=== PATIENT | male | born 1965 | race Caucasian/White ===

== ENCOUNTER 2023-01-28 15:50 | Observation (INO) | payer BC, OTHER ==
[2023-01-28 16:08] VITALS: BMI 34.7
[2023-01-28 16:33] LABS: HEMATOCRIT 53.3 % (35.4-49); HEMOGLOBIN 17.8 G/dL (11.7-16.9); MCH 30.4 pg (25.7-33.7); MCHC 33.3 g/dl (32.0-35.9); MEAN CELL VOLUME 91.2 fl (80-96); MEAN PLT VOLUME 8.4 fl (7.5-11.1); PLATELET COUNT 274.6 10^3/uL (134-434); RBC 5.84 10^6/uL (4.00-5.60); WHITE BLOOD COUNT 8.6 10^3/uL (4.0-10.8)
[2023-01-28 16:44] LABS: ALBUMIN 4.8 g/dl (3.4-5.0); CALCIUM 9.9 mg/dl (8.5-10.1); CREATININE 0.8 mg/dl (0.6-1.3); TOT PROT 7.4 g/dl (6.4-8.2)
[2023-01-28 16:44] LABS: PLATELET ESTIMATE ADEQUATE
[2023-01-28] MEDS ORDERED: LACTATED RINGERS SOLUTION 1,000 ML/1,000 ML INFUS.BAG IV STA ×2 (17:17→18:52)
[2023-01-28] MEDS ORDERED: ACETAMINOPHEN 325 MG TABLET (FP) PO ONE (17:36)
[2023-01-28] MEDS ORDERED: ACETAMINOPHEN 325 MG TABLET (FP) ONE (17:55)
[2023-01-28 22:30] LABS: INR 1.34 (0.83-1.09); PROTHROMBIN TIME (PATIENT) 15.5 SEC (9.7-13.0)
[2023-01-28] MEDS ORDERED: SODIUM CHLORIDE 1,000 ML IV SCH (22:30)
[2023-01-28 22:41] LABS: MAGNESIUM 1.9 mg/dL (1.8-2.4); PHOSPHOROUS 2.7 (2.5-4.9)
[2023-01-28] MEDS ORDERED: ASPIRIN 81 MG CHEWABLE TABLETS PO ONE (23:07)
[2023-01-28] MEDS ORDERED: ASPIRIN 325 MG TABLET ONE (23:07)
[2023-01-28] MEDS ORDERED: dilTIAZem HCL 30 MG TABLET PO ONE (23:20)
[2023-01-28] MEDS ORDERED: dilTIAZem HCL 30 MG TABLET ONE (23:21)
[2023-01-29] MEDS ORDERED: ACETAMINOPHEN 1000 MG/100 ML BAG IVPB PRN
[2023-01-29] MEDS ORDERED: guaiFENesin/D-METHORPHAN HB 10 ML UNIT-DOSE CUPS PO PRN (07:11)
[2023-01-29 08:53] LABS: CALCIUM 8.9 mg/dl (8.5-10.1); POTASSIUM 4.4 mmol/L (3.5-5.1)
[2023-01-29 09:00] VITALS: BP 112/65; PULSE 76; RESP 19; TEMP 98.4
[2023-01-29 10:08] LABS: BASO % 0.4 % (0-2.0); EOS % 2.6 % (0-4.5); HEMATOCRIT 45.9 % (35.4-49); HEMOGLOBIN 15.3 GM/dL (11.7-16.9); LYMPH % 19.1 % (8-40); MCH 30.4 pg (25.7-33.7); MCHC 33.4 g/dl (32.0-35.9); MEAN CELL VOLUME 90.8 fl (80-96); MEAN PLT VOLUME 8.5 fl (7.5-11.1); MONO % 9.4 % (3.8-10.2); NEUT % 68.5 % (42.8-82.8); PLATELET COUNT 290 10^3/uL (134-434); RBC 5.05 M/mm3 (4.00-5.60); RDW 13.8 % (11.9-15.9); WHITE BLOOD COUNT 7.9 K/mm3 (4.0-10.0)
[2023-01-30] MEDS ORDERED: ACETAMINOPHEN 325 MG TABLET (FP) PO PRN
== END 2023-01-29 12:44 | disposition home or self-care (01) ==
LOC: FER 15:50 → FM/S 21:45 → UNDOADMOB 21:53 → FM/S 21:53
PROVIDERS: ADMIT Internal Medicine; ATTEND Internal Medicine
PROC: 3E0337Z Introduction of Electrolytic and Water Balance Substance into Peripheral Vein, Percutaneous Approach (ICD-10-PCS; principal; 2023-01-28)
DX: R00.0 Tachycardia, unspecified (principal); R06.02 Shortness of breath; R05.9 Cough, unspecified; R09.81 Nasal congestion
CPT/HCPCS: 0241U-QW; 36415; 71046-TC-FY; 71275-TC; 80048; 80053; 82550; 82553; 83735; 84100; 84443; 84484; 85025; 85610; 93005; 93010; 99285-25; G0378; Q9967

== ENCOUNTER 2023-11-17 15:12 | Observation (INO) | payer BC ==
[2023-11-17] MEDS ORDERED: dilTIAZem HCL 125 MG/25 ML - 25 ML VIAL ONE ×2 (15:40→17:56)
[2023-11-17] MEDS: dilTIAZem HCL 50 MG/10 ML - 10 ML VIAL IVPUSH ONE ×2 (15:45→17:56)
[2023-11-17] MEDS: SODIUM CHLORIDE 0.9% 1000 ML INFUS.BAG IV ONE ×2 (15:51→17:45)
[2023-11-17] MEDS ORDERED: dilTIAZem HCL 30 MG TABLET ONE (16:02)
[2023-11-17] MEDS: dilTIAZem HCL 30 MG TABLET PO ONE (16:04)
[2023-11-17 16:24] LABS: HEMATOCRIT 52.2 % (35.4-49); HEMOGLOBIN 17.3 G/dL (11.7-16.9); MCH 30.2 pg (25.7-33.7); MCHC 33.1 g/dl (32.0-35.9); MEAN CELL VOLUME 91.3 fl (80-96); MEAN PLT VOLUME 8.8 fl (7.5-11.1); PLATELET COUNT 226.4 10^3/uL (134-434); RBC 5.72 10^6/uL (4.00-5.60); RDW 14.1 % (11.9-15.9); WHITE BLOOD COUNT 6.7 10^3/uL (4.0-10.8)
[2023-11-17 16:26] LABS: INR 1.22 (0.83-1.09); PROTHROMBIN TIME (PATIENT) 13.8 SEC (9.7-13.0)
[2023-11-17 16:28] LABS: ACTIVATED PTT 36.4 SECONDS (25.2-36.5)
[2023-11-17 16:37] LABS: ALBUMIN 4.4 g/dl (3.4-5.0); ALK PHOS 47 U/L (45-117); ANION GAP 12 mmol/L (4-13); BILIRUBIN,TOTAL 1.1 mg/dl (0.2-1); CALCIUM 9.7 mg/dl (8.5-10.1); CHLORIDE 103 mmol/L (98-107); CO2 23 mmol/L (21-32); CREATININE 0.9 mg/dl (0.6-1.3); GLUCOSE,RANDOM 99 mg/dl (74-106); MAGNESIUM 1.9 mg/dL (1.8-2.4); POTASSIUM 3.9 mmol/L (3.5-5.1); SGOT/AST 28 U/L (15-37); SGPT/ALT 17 U/L (7-52); SODIUM 138 mmol/L (136-145); TOT PROT 6.8 g/dl (6.4-8.2)
[2023-11-17 17:46] LABS: PLATELET ESTIMATE ADEQUATE
[2023-11-18 06:28] VITALS: BMI 80.1
[2023-11-18 07:52] LABS: HEMATOCRIT 48.8 % (35.4-49); HEMOGLOBIN 15.9 G/dL (11.7-16.9); MCH 29.8 pg (25.7-33.7); MCHC 32.6 g/dl (32.0-35.9); MEAN CELL VOLUME 91.5 fl (80-96); MEAN PLT VOLUME 8.2 fl (7.5-11.1); PLATELET COUNT 230.8 10^3/uL (134-434); RBC 5.33 10^6/uL (4.00-5.60); RDW 14.5 % (11.9-15.9); WHITE BLOOD COUNT 5.4 10^3/uL (4.0-10.8)
[2023-11-18 09:11] LABS: CREATININE 0.9 mg/dl (0.6-1.3); PHOSPHOROUS 3.1 (2.5-4.9); POTASSIUM 4.1 mmol/L (3.5-5.1)
[2023-11-18] MEDS: ASPIRIN COATED 81 MG TABLET.EC PO SCH (09:25)
[2023-11-18] MEDS: ENOXAPARIN NA (PORCINE) 40 MG/0.4 ML DISP.SYRIN SQ SCH (09:27)
[2023-11-18 09:48] VITALS: RESP 18
[2023-11-18 14:12] VITALS: BP 135/75; PULSE 61; TEMP 98.5
== END 2023-11-18 15:05 | disposition home or self-care (01) ==
LOC: FER 15:12 → FM/S 23:27 → UNDOADMOB 11-18 00:07
PROVIDERS: ADMIT Internal Medicine
PROC: 3E033GC Introduction of Other Therapeutic Substance into Peripheral Vein, Percutaneous Approach (ICD-10-PCS; principal; 2023-11-17)
PROC: 3E0337Z Introduction of Electrolytic and Water Balance Substance into Peripheral Vein, Percutaneous Approach (ICD-10-PCS; 2023-11-17)
DX: I48.92 Unspecified atrial flutter (principal); R00.0 Tachycardia, unspecified; I10 Essential (primary) hypertension; G47.33 Obstructive sleep apnea (adult) (pediatric); E78.5 Hyperlipidemia, unspecified; E66.9 Obesity, unspecified
CPT/HCPCS: 36415; 71045-TC-FY; 80048; 80053; 83036; 83735; 84100; 84439; 84443; 84484; 85027; 85610; 85730; 93005; 96374; 96376; 99285-25; G0378